=== PATIENT | female | born 1955 | race Hispanic/Latino ===

== ENCOUNTER 2023-10-10 11:03 | Day surgery (SDC) | payer MEDICAID ==
[2023-10-08 11:16] LABS: Absolute Eosinophils 0.1 K/uL (0-0.5); Absolute Lymphocytes (CBC) 1.2 K/uL (0.7-4.9); Absolute Monocytes 0.5 K/uL (0.1-1.3); Absolute Neutrophil 2.1 K/uL (1.8-8.0); Basophils % 0.4 % (0-1.3); Eosinophils % 1.3 % (0-4.4); Hemoglobin 12.8 g/dL (12.0-15.0); Lymphocytes % 31.6 % (15.3-44.8); MCH 27.1 pg (27.0-35.0); MCHC 32.9 g/dL (32.0-36.0); MCV 82.3 fL (80-100); Monocytes % 11.9 % (3.3-12.3); Neutrophils % 54.8 % (41.7-73.7); Platelets 169 thou/uL (152-406); RBC Red Blood Cell Count 4.73 M/uL (3.86-4.86); Red Cell Distribution Width 16.3 % (12.1-15.2)
[2023-10-08 11:33] LABS: Anion Gap 4.9 mEq/L (5.0-15.0); Potassium 3.9 mEq/L (3.5-5.1)
--- NOTE | 2023-10-09 16:29 | EKG ---
Test Date: 2023-10-08 Test Time: 10:54:51 Quality Worker: DEVAN MEASUREMENT RESULTS: Intervals: Rate: 72 WI: 132 QRSD: 74 QT: 396 QTc: 433 [place]: P: 45 WI: 132 QRS: 65 T: 66 INTERPRETIVE STATEMENTS: Normal sinus rhythm Normal ECG No previous ECG available for comparison Electronically Signed On 10-09-23 16:28:32 CDT by Samson Orr
[2023-10-10] MEDS: Ringers Lactate 1,000 ML IV ONE (11:03)
[2023-10-10] MEDS ORDERED: FENTANYL CITR 100 MCG/2 ML ONE (12:31)
[2023-10-10] MEDS ORDERED: MIDAZOLAM HCL 2 MG/2 ML INJ ONE (12:31)
[2023-10-10] MEDS ORDERED: LIDOCAINE 2% MPF 5 ML VIAL ONE (12:31)
[2023-10-10] MEDS: CEFAZOLIN SODIUM 2 GM/VIAL ONE (12:31)
[2023-10-10] MEDS ORDERED: propofoL 200 MG/20 ML VIAL IV ONE (12:31)
[2023-10-10] MEDS ORDERED: ROCURONIUM 50 MG/5 ML VIAL IV ONE (13:14)
[2023-10-10] MEDS ORDERED: dexAMETHasone 4 MG/ML VIAL ONE (13:39)
[2023-10-10] MEDS ORDERED: EPINEPHrine 1 MG/10 ML SYR ONE (13:40)
[2023-10-10] MEDS ORDERED: ONDANSETRON 4 MG/2 ML VIAL ONE (13:40)
[2023-10-10] MEDS: LIDOCAINE HCL/EPINEPHRINE 20 ML MDV ONE (13:44)
--- NOTE | 2023-10-10 14:09 | P.OP ---
Preoperative diagnosis: RIGHT Facial Mass, LEFT Dorsal Hypothenar Hand Mass Postoperative diagnosis: RIGHT Facial Mass, LEFT Dorsal Hypothenar Hand Mass Primary procedure: Excisional Biopsy of LEFT Dorsal Hypothenar Hand Mass Secondary procedure: Shave Biopsy of RIGHT Facial Mass Anesthesia: GETA + Local Estimated blood loss: <1cc Specimen: RIGHT Facial Mass, LEFT Dorsal Hypothenar Hand Mass Findings: 0.3cm facial cheek mass, ~ 3cm x 2cm LEFT Dorsal Hypothenar hand mass Complications: None Transferred to: Recovery Room Condition: Good
[2023-10-10] MEDS: HYDROCODONE/APAP 7.5/325 MG TAB ONE (15:06)
[2023-10-10 17:17] VITALS: BP 116/63; TEMP 97.1; O2SAT 100
--- NOTE | 2023-10-11 01:12 | OP ---
Date of Procedure: 10/10/2023 Surgeon: Telly Robert MD, Preoperative Diagnoses: Right facial mass, left dorsal hypothenar hand mass. Postoperative Diagnoses: Right facial mass, left dorsal hypothenar hand mass. Procedures Performed: 1.Excisional biopsy of left dorsal hypothenar hand mass along the fifth metacarpal. 2.Shave biopsy of right infraorbital, cheek, zygomatic facial skin mass. Anesthesia: General endotracheal plus local with 1% lidocaine with epinephrine. Estimated Blood Loss: Less than 1 cc. Specimens: Right facial mass and a left dorsal hypothenar hand mass. Findings: Approximately 0.3 cm facial cheek mass and a 3 x 2 cm left dorsal hypothenar hand mass. Complications: None. Disposition: The patient was transferred to recovery room in good condition. Procedure In Detail: After informed consent was obtained, the patient was brought to the operating r oom, prepped in the usual sterile fashion. After adequate anesthesia was achieved, I proceeded to an esthetize an area of the right cheek along the zygoma at the infraorbital position with 1% lidocaine with epinephrine. I then proceeded to use a flexible Brayton blade to shave off this 0.3 cm hyperpigme nted skin lesion down to the dermal plane and sent it off for pathologic examination. Hemostasis was easily achieved with minimal electrocautery at this point, and a sterile dressing placed over top. I then turned my attention to the left dorsal hand mass, which was evident on preoperative imaging as well as grossly on examination. This mobile mass appeared to be emanating from the skin area and as such, I anesthetized the skin overlying. I made an incision down to subcutaneous tissues with a 15 blade and ultimately dissected down circumferentially around bringing the mass into the field with el ectrocautery. I then removed the ellipse of skin along this hand mass, which was approximately 3 cm x 2 cm in size, and sent it off for pathologic examination. The area was copiously irrigated. Hemos tasis was achieved with simple pressure, and the skin was reapproximated using interrupted 3-0 nylon sutures and a sterile dressing was placed over top. The patient tolerated the procedure without inci dent or complication and transferred to PACU in good condition. All counts were correct at the end o f the case. MIRTHA/MINERVA Voice ID: [id number] Report ID: [id number]
== END 2023-10-10 16:20 | disposition home or self-care (01) ==
LOC: OR 11:03
PROVIDERS: ATTEND Surgery
PROC: 0JBJ0ZZ Excision of Right Hand Subcutaneous Tissue and Fascia, Open Approach (ICD-10-PCS; principal; 2023-10-10 12:45)
PROC: 0HB1XZZ Excision of Face Skin, External Approach (ICD-10-PCS; 2023-10-10 12:45)
DX: D23.62 Other benign neoplasm of skin of left upper limb, including shoulder (principal); D22.39 Melanocytic nevi of other parts of face; L98.9 Disorder of the skin and subcutaneous tissue, unspecified
CPT/HCPCS: 93005; 85025; 80048; 36415; 88305; 11423; 11440; J2704; J1100; J2001; J2250; J3010; J2405; J7120; J0171

== ENCOUNTER 2023-11-14 11:28 | Day surgery (SDC) | payer MEDICAID ==
[2023-11-14 09:06] LABS: Absolute Lymphocytes (CBC) 1.1 K/uL (0.7-4.9); Absolute Monocytes 0.4 K/uL (0.1-1.3); Absolute Neutrophil 1.8 K/uL (1.8-8.0); Basophils % 0.7 % (0-1.3); Eosinophils % 1.3 % (0-4.4); Hematocrit 41.7 % (36.0-45.0); Hemoglobin 13.5 g/dL (12.0-15.0); MCH 26.8 pg (27.0-35.0); MCHC 32.5 g/dL (32.0-36.0); MCV 82.7 fL (80-100); MPV 7.9 fL (7.6-11.3); Monocytes % 12.2 % (3.3-12.3); Neutrophils % 52.8 % (41.7-73.7); Platelets 154 thou/uL (152-406); RBC Red Blood Cell Count 5.04 M/uL (3.86-4.86); Red Cell Distribution Width 16.3 % (12.1-15.2)
[2023-11-14 09:14] LABS: Anion Gap 7.9 mEq/L (5.0-15.0); Potassium 3.9 mEq/L (3.5-5.1)
[2023-11-14] MEDS ORDERED: Ringers Lactate 1,000 ML IV ONE (11:48)
[2023-11-14] MEDS: KETOROLAC 30 MG/ML INJ ONE (12:03)
[2023-11-14] MEDS ORDERED: propofoL 200 MG/20 ML VIAL IV ONE (12:59)
[2023-11-14] MEDS ORDERED: LIDOCAINE 1% MPF 5 ML VIAL ONE (13:00)
[2023-11-14 14:18] VITALS: BP 117/67; TEMP 97; O2SAT 96
== END 2023-11-14 14:20 | disposition home or self-care (01) ==
LOC: OR 11:28
PROVIDERS: ATTEND Surgery
PROC: 0DBN8ZX Excision of Sigmoid Colon, Via Natural or Artificial Opening Endoscopic, Diagnostic (ICD-10-PCS; 2023-11-14)
PROC: 0DBH8ZX Excision of Cecum, Via Natural or Artificial Opening Endoscopic, Diagnostic (ICD-10-PCS; principal; 2023-11-14 12:30)
DX: Z12.11 Encounter for screening for malignant neoplasm of colon (principal); K52.9 Noninfective gastroenteritis and colitis, unspecified; K64.8 Other hemorrhoids
CPT/HCPCS: 36415; 80048; 85025; J2001; J2704; J7120